=== PATIENT | male | born 1990 | race Asian ===

== ENCOUNTER 2017-06-14 21:38 | Emergency (ER) | payer OTHER ==
[~2017-06-14] VITALS: Ht 175.3 cm; Wt 77.3 kg
[2017-06-15 00:32] VITALS: BP 110/70
== END 2017-06-15 01:09 | disposition home or self-care (01) ==
LOC: EMS 21:40
DX: F10.129 Alcohol abuse with intoxication, unspecified (principal); F17.200 Nicotine dependence, unspecified, uncomplicated; Y90.9 Presence of alcohol in blood, level not specified
CPT/HCPCS: 99283